=== PATIENT | male | born 1965 | race Caucasian/White ===

== ENCOUNTER 2017-03-13 20:25 | Emergency (ER) | payer OTHER ==
[~2017-03-13] VITALS: Ht 175.3 cm; Wt 90.0 kg
[~2017-03-13 20:25] MED LIST: DIVA250T12 PO; INSU500V SUBQ; METF10002 PO; VENL37.57 PO
[2017-03-13 21:02] VITALS: BP 171/92; PULSE 85; RESP 18; O2SAT 99
[2017-03-13 21:26] LABS: BASOPHILS % (AUTO) 0.6 % (0-3); EOSINOPHILS % (AUTO) 2.6 % (0-5); MONOCYTES % (AUTO) 7.8 % (4-12); Mean Corpuscular Hemoglobin 29.1 pg (27.0-35.0); Mean Corpuscular Volume 83.1 fL (81-100); NEUTROPHILS % (AUTO) 50.9 % (40-74); Platelet Count 233 bil/L (150-400)
[2017-03-14 02:02] VITALS: BP 160/93; PULSE 87; RESP 17; O2SAT 99
--- NOTE | 2017-03-14 03:05 | ED.REPORT ---
HPI-General Illness Date of Service Mar 14, 2017 ED Provider: Johnathan Lundberg MD The pt is a 52 y/o male with a hx of diabetes, HTN, depression and anxiety who presents to the ED complaining of gradual onset of disequilibrium for the last two weeks. The pt went to urgent care today for hyperglycemia. He was prescribed insulin and was then sent to the ED as he was unsteady on his feet and had lack of coordination. He denies any recent falls. The pt has been taking Latuda for a couple of years and does not associate his sx with the medication. He did start a new anti-anxiety medication recently but does not recall the name of the medication. Nursing Notes Stated Complaint: DIABETIC,OFF BALANCE Chief Complaint: General Complaint Nursing Notes Reviewed: Yes Allergies: Coded Allergies: No Known Allergies (Verified Allergy, Unknown, 09/21/14) Scheduled Divalproex ER (Divalproex ER) 250 Mg Tab.er.24h 250 MG PO DAILY *DAILY DOSING ONLY* Swallowed whole without chewing to avoid local irritation of the mouth and throat. Insulin Regular, Human (HUMulin-R U-500 Insulin Vial) 500 Unit/1 Ml Vial 22 UNIT SUBQ TID-INSULIN Metformin (Metformin) 1,000 Mg Tablet 1,000 MG PO BIDWM Venlafaxine (Venlafaxine) 37.5 Mg Tablet 37.5 MG PO BIDWM General Time Seen by MD: 00:13 Chief Complaint Other (disequilibrium) Hx Obtained From: Patient Arrived By: Walk-in Sudden in Onset?: Yes Onset Occurred: More than a week ago... (2 weeks) Symptom Duration: Since onset Severity: Current: No pain currently Severity: Maximum: No pain Recent Healthcare: Recent doctor visit Similar Sx Previous: No Past Medical History Past Medical History Anxiety Reports: Diabetes mellitus, Hypertension Reports: Depression Past Surgical History Denies Smoking History Never Smoker Social History Alcohol Use: Denies alcohol use Drug Use: Denies drug use Review of Systems Reports: disequilibrium Reports: hyperglycemia Denies: recent fall and trauma Complete sys rev & neg: except as marked. Physical Exam Vital Signs Vital Signs Date Time Temp Pulse Resp B/P Pulse Ox O2 Delivery O2 Flow Rate FiO2 03/14/17 03:40 36.2 87 17 160/93 99 Room Air 03/14/17 02:02 87 17 160/93 99 Room Air 03/13/17 21:02 36.2 85 18 171/92 99 Room Air Initial VS: Reviewed Head / Eyes: Atraumatic, Normocephalic Neck: Supple, Non-tender, Full range of motion Respiratory: Breath sounds normal, Clear to auscultation, No respiratory distress Cardiovascular: Regular rate & rhythm, Heart sounds normal, Intact distal pulses Abdomen / GI: Soft, Non-tender Extremities: Vascular intact, Neuro intact, No swelling, No tenderness Skin: Warm, Dry, No cyanosis General/Constitutional: Awake, Alert, No acute distress, Cooperative Neurologic: Oriented X3, Speech NL, No motor deficits, No sensory deficits Romberg positive. Strength and sensation is intact in all extremities. The pt has a mild, symmetric tremor. Interpretation & Diagnostics Lab Results Interpretation Result Diagram: 03/13/17211903/13/172119 Test 03/13/17 21:20 White Blood Count 8.1th/mm3 (3.8-10.1) Red Blood Count 4.43mil/mm3 (4.40-5.80) Hemoglobin 12.9g/dL (13.8-17.2) Hematocrit 36.8% (41.0-50.0) Mean Corpuscular Volume 83.1fL (81-100) Mean Corpuscular Hemoglobin 29.1pg (27.0-35.0) Mean Corpuscular Hemoglobin Concent 35.1% (32.0-37.0) Red Cell Distribution Width 12.5% (12.3-15.4) Platelet Count 233bil/L (150-400) Neutrophils (%) (Auto) 50.9% (40-74) Lymphocytes (%) (Auto) 38.0% (14-46) Monocytes (%) (Auto) 7.8% (4-12) Eosinophils (%) (Auto) 2.6% (0-5) Basophils (%) (Auto) 0.6% (0-3) Sodium Level 132mEq/L (134-144) Potassium Level 4.5mEq/L (3.5-5.2) Chloride Level 93mEq/L (97-108) Carbon Dioxide Level 22mmol/L (18-29) Blood Urea Nitrogen 40mg/dL (6-24) Creatinine 1.39mg/dL (0.76-1.27) Estimat Glomerular Filtration Rate 57mL/min (>59) Glucose Level 281mg/dL (60-99) Calcium Level 9.0mg/dL (8.5-10.1) Total Bilirubin 0.2mg/dL (0.0-1.2) Aspartate Amino Transf (AST/SGOT) 21U/L (0-50) Alanine Aminotransferase (ALT/SGPT) 20U/L (0-44) Alkaline Phosphatase 87U/L (25-150) Total Protein 7.4g/dL (6.4-8.4) Albumin 3.9g/dL (3.4-5.0) Hold Penn Top Tube Received (Received) CT Head Interpretation Questionable trace parafalcine acute subdural hematoma Singed by Dr. Sheng Gupta 03/14/17 01:47 Study: Head CT no contrast Interpretation / Wet Read by: Interpret - Radiologist Re-Eval/Medical Decision Med Decision/Clinical Course 52-year-old presents with disequilibrium and unsteady gait. Onset coincides with introduction of an anti-anxiety medicine, name unknown to him. He continues on Latuda without change and does not feel that it could be related to that, since he has been on Latuda for years. He has uncontrolled diabetes which is now coming back under control with reintroduction of insulin. His Romberg is definitively positive and 90% significant problems with proprioception. His Romberg becomes normal instantly upon opening his eyes. He is advised to hold his anxiety medication for a few days and see if it influences his dizziness. Some of this is clearly problems with proprioception and diabetic neuropathy. He is referred back to his primary care and discharged in stable condition. Time of Eval: 03:16 Re-Evaluation/Progress Note: Rechecked pt. Discussed lab results, imaging results, diagnosis and plan to discharge. Pt understands and agrees with the plan. F/U instruction and RTER warning given. All questions addressed. Counseled Regarding: Diagnosis, Lab results, Need for follow-up, When/why to return to ED Discharge & Departure Primary Impression: Disequilibrium Additional Impression: Peripheral neuropathy Peripheral neuropathy type: polyneuropathy, unspecified Qualified Code: G62.9 - Polyneuropathy, unspecified Disposition: Home Discharge Condition All VS Reviewed: Yes Condition: Stable Patient Instructions: Diabetic Peripheral Neuropathy (ED), Type 2 Diabetes in Adults (ED) Additional Instructions: Resume close control of your diabetes. I would suggest holding your anti-anxiety medicine for a few days to see if it influences your sense of dizziness. Continue your Latuda as before. Follow-up with your regular doctor in the office. Return if any immediate issues. Referrals: Mert Salgado DO (PCP) Scribe Attestation Portions of this note were transcribed by Maura Sanders. I,, personally performed the history, physical exam and medical decision-making;I reviewed and confirmed the accuracy of the information in the transcribed note. Signed by Shivani Sanchez. 03/14/17 copies to: Mert Salgado Christopher W MD Mar 14, 2017 03:05 Maura Sanders Mar 14, 2017 03:26
[2017-03-14 03:40] VITALS: BP 160/93; PULSE 87; RESP 17; O2SAT 99
--- NOTE | 2017-03-14 09:38 | DRSVH ---
PROCEDURE: CT BRAIN WITHOUT CONTRAST ([id number]) INDICATIONS: dysequilibrium, remote head injury TECHNIQUE: Noncontrast 4.5 mm thick angled axial sections acquired from the foramen magnum to the vertex, with c oronal reformats. COMPARISON: None. FINDINGS: Image quality: Good CSF spaces: Basal cisterns are patent. No extra-axial fluid collections. Ventricles are normal in size and shape. Brain: No midline shift. No intracranial masses or hemorrhage. Bryant-white matter interface is norm al. Skull and face: Calvarium and visualized facial bones are intact, without suspicious lesions. Sinuses: Visualized sinuses and mastoids are clear. IMPRESSION: I do not appreciate any abnormality intracranially. The question trace of parafalcine acu te subdural hematoma I think is volume averaged artifact. Thin section CT scans to the posterior supe rior aspect of the hand could distinguish this or followup could be obtained in approximately 6-8 debbie rs to evaluate for change. Dictated by: Thad Mehta M.D. on 03/14/2017 at 9:33 Approved by: Thad Mehta M.D. on 03/14/2017 at 9:37
== END 2017-03-14 03:40 | disposition home or self-care (01) ==
LOC: SED 20:25
DX: E87.8 Other disorders of electrolyte and fluid balance, not elsewhere classified (principal); G62.9 Polyneuropathy, unspecified; E11.9 Type 2 diabetes mellitus without complications; I10 Essential (primary) hypertension; F41.8 Other specified anxiety disorders; Z79.4 Long term (current) use of insulin; Z79.84 Long term (current) use of oral hypoglycemic drugs